=== PATIENT | male | born 1970 | race Caucasian/White ===

== ENCOUNTER 2025-04-28 11:03 | Outpatient (AMB) | payer MEDICARE, MEDICAID, SELFPAY ==
--- OUTSIDE RECORDS SUMMARY | 2024-04-03 14:15 | XMS_ITS | Encounter Summary ---
Author Organization [facility] Address [address] [place] [address] Care Team Providers Care Inspector Of Dredging Name Role Phone Oliver Schrader MD Primary Care Provider [phone] Encounter Details Date Type Department Care Team (Late st Contact Info) Description 04/03/2024 3:15 PM EDT Hospital Encounter TH HISTORIC ENCOUNTERS EASTERN CONVERSION ONLY Samanta Bill PA [address] [place] [address] Social History Tobacco Use Types Packs/Day Years Used Date Smoking Tobacco: Never Smokeless Tobacco: Never Alcohol Use Standard Drinks/Week Comments No 0 (1 standard drink = 0.6 oz pur e alcohol) Interpersonal Safety Answer Date Record ed Physical Abuse Unrecognized value 12/28/2024 Verbal Abuse Unrecognized value 12/28/2024 Sex and Gender Information Value Date Recorded Sex Assigned at Male 08/30/2024 3:16 AM EDT Legal Sex Male 11:36 AM EDT Gender Identity Male 08/30/2024 3:16 AM EDT Sexual Orientation Not on file documented as of this encounter Last Filed Vital Signs Vital Sign Reading Time Taken Comments Blood Pressure 125/63 04/03/2024 3:27 PM EDT Sit ting Pulse 105 04/03/2024 3:27 PM EDT Temperature - - Respiratory Rate - - Oxygen Saturation - - Inhaled Oxygen Concentration - - Weight 59 kg (130 lb) 07/20/2021 1:01 PM EST Height 170.2 cm (5' 7 ) 07/20/2021 1:01 PM EST Body Mass Index 20.36 07/20/2021 1:01 PM EST documented in this encounter Functional Status * Calculated C-SSRS Risk Score (Lifetime/Recent) Answer Date of Assessment Author No Risk Indicated 08/30/2024 2:00 AM EDT Kristen Walton RN * [place] Suicide Severity Rating Scale (Screener/Recent Self-Report) Question Answer Date of Assessment Author 1. Wish to be (Past 1 Month) No 025 2:00 AM EDT Kristen Walton, CARRILLO 2. Non-Specific Active Suici kalli Thoughts (Past 1 Month) No 08/30/2024 2:00 AM EDT Kristen Walton RN 6. Suicidal Behavior (Lifetime) No 2:00 AM EDT Kristen Walton RN documented as of this encounter Plan of Treatment Upcoming Encounters Date Type Department Care Team (Late st Contact Info) Description 09/25/2025 1:30 PM EDT Office Visit [facility] Hematology Oncology [address] [place] [address] Samanta Bill PA [address] [place] [address] documented as of this encounter Visit Diagnoses Not on filedocumented in this encounter Additional Health Concerns Infection Onset Date Last Indicated Resolved Time Respiratory Rule-Out 08/30/2024 08/30/2024 025 4:54 AM EDT COVID-19 Rule-Out 08/30/2024 08/30/2024 08/30/2024 4:54 AM EDT Influenza 08/30/2024 08/30/2024 09/23/2024 7:04 PM EDT documented as of this encounter Care Teams Inspector Of Dredging Relationship Specialty Start Date End Date Oliver Schrader MD [address] [facility] [address] [place] [phone] PCP - General 09/25/22 documented as of this encounter
--- OUTSIDE RECORDS SUMMARY | 2024-04-03 14:30 | XMS_ITS | Encounter Summary ---
Author Organization [facility] Address [address] [place] [address] Care Team Providers Care Auto Service Instructor Name Role Phone Oliver Schrader MD Primary Care Provider [phone] Encounter Details Date Type Department Care Team (Late st Contact Info) Description 04/03/2024 3:30 PM EDT Hospital Encounter TH HISTORIC ENCOUNTERS EASTERN CONVERSION ONLY Samanta Bill PA [address] [place] [address] Social History Tobacco Use Types Packs/Day Years [...] on file documented as of this encounter Functional Status * Calculated C-SSRS Risk Score (Lifetime/Recent) Answer Date of Assessment Author No Risk Indicated 08/30/2024 2:00 AM EDT Kristen Walton, CARRILLO * [place] Suicide Severity Rating Scale (Screener/Recent Self-Report) Question Answer Date of Assessment Author 1. Wish to be (Past 1 Month) No 025 2:00 AM EDT Kristen Walton, RN 2. Non-Specific Active Suici kalli Thoughts (Past 1 Month) No 08/30/2024 2:00 AM EDT Kristen Walton, RN 6. Suicidal Behavior (Lifetime) No 2:00 AM EDT Kristen Walton RN documented as of this encounter Plan of Treatment Upcoming Encounters Date Type Department Care Team (Late st Contact Info) Description 09/25/2025 1:30 PM EDT Office Visit [facility] Hematology Oncology [address] [place] [phone] Samanta Bill PA [address] [place] [address] documented as of this encounter Visit Diagnoses Not on filedocumented in this encounter Additional Health Concerns Infection Onset Date Last Indicated Resolved Time Respiratory Rule-Out 08/30/2024 08/30/2024 025 4:54 AM EDT COVID-19 Rule-Out 08/30/2024 08/30/2024 08/30/2024 4:54 AM EDT Influenza 08/30/2024 08/30/2024 09/23/2024 7:04 PM EDT documented as of this encounter Care Teams Auto Service Instructor Relationship Specialty Start Date End Date Oliver Schrader MD [address] [facility] [address] [place] [phone] PCP - General 09/25/22 documented as of this encounter
--- NOTE | 2025-04-28 11:25 | A.OFFVIS_ITS ---
Intake Visit Reasons: follow up Allergies No Known Allergies Allergy (Verified 12/16/24 09:53) HPI Comments Details: 54 years old man with severe chronic static encephalopathy and seizure disorder cared by his sister in law. Family could not bring him and we did tele consult. He was doing ok but occasionally had a brief seizure like spell. He was bedridden. His shaper set up operator is presenting for follow-up and medication management. The patient has severe iron deficiency anemia and is followed at a cancer center where the iron level is checked every six months. The patient received iron infusions, with the last course occurring in June or July of the previous year, and requires a follow-up blood check in May. The patient has experienced weight loss and is now skinny. The patient's diet primarily consists of pureed or soft foods and liquids. Mobility has declined, and the patient no longer moves well. The patient reports bone pain, particularly in the hips, which is exacerbated by position changes such as during diaper changes. Tylenol is administered for pain, with two doses in the morning and two at night. The patient requires medication for sleep and will remain awake all night without it. The patient is reportedly adherent to the medication regimen and requires refills for several medications, including clonazepam. [facility] Medical History (Updated 04/28/25 @ 11:28 by Britton Loo MD) DVT (deep venous thrombosis) Insomnia Restlessness and agitation Chronic static encephalopathy Epilepsy Assessment & Plan Assessment & Plan (1) Insomnia: Code(s): G47.00 - Insomnia, unspecified Category: Medical Qualifiers: Insomnia type: due to other mental disorder Qualified Code(s): F51.05 - Insomnia due to other mental disorder; F99 - Mental disorder, not otherwise specified (2) Chronic static encephalopathy: Code(s): G93.49 - Other encephalopathy Category: Medical (3) Epilepsy: Code(s): G40.909 - Epilepsy, unspecified, not intractable, without status epilepticus Category: Medical Qualifiers: Epilepsy type: unspecified Intractability: not intractable Status epilepticus: without status epilepticus Qualified Code(s): G40.909 - Epilepsy, unspecified, not intractable, without status epilepticus Plan Impression: a: Chronic static encephalopathy b: Epilepsy c: Insomnia Rec: a: Divalproex acid 250mg, one tid b; Phenytoid sodium ER 100mg, one tid c: Folic acid 1mg daily d: Clonazepam 1mg one at bedtime e: Quetiapine 25mg one at bedtime Orders: Orders Liver Panel Today G40.909 - Epilepsy, unspecified, not intractable, without status epilepticus Phenytoin Dilantin Today G40.90 - Epilepsy, unspecified, not intractable, without status epilepticus Valproate Today G40 - Epilepsy, unspecified, not intractable, without status epilepticus Medications: Refilled divalproex 250 mg PO TID 270 tabs 1RF 90 days folic acid 1 mg PO DAILY 90 tabs 1RF clonazepam (Klonopin) administer 30 minutes before bedtime 1 mg PO BEDTIME 90 tabs 1RF phenytoin sodium extended 100 mg PO TID 270 caps 1RF 90 days quetiapine 25 mg orally one at bedtime; 90 tabs 1RF Coding Level of Care Code Est Pt Level 3 (72962) Diagnoses Insomnia due to other mental disorder F51.05; F99 Insomnia type: due to other mental disorder Chronic static encephalopathy G93.49 Nonintractable epilepsy without status epilepticus, unspecified epilepsy type G40.90 Epilepsy type: unspecified Intractability: not intractable Status epilepticus: without status epilepticus
--- OUTSIDE RECORDS SUMMARY | 2025-04-28 14:35 | XMS_ITS | Encounter Summary ---
Author Organization [facility] Address [address] [place] [address] Care Team Providers Care Kiln Door Repairer Name Role Phone Oliver Schrader MD Primary Care Provider [phone] Encounter Details Date Type Department Care Team (Late Contact Info) Description 03/30/2025 Results Follow-Up [facility] Hematology Oncology [address] [place] [phone] Samanta Bill PA [address] [place] [address] Social History Tobacco Use Types Packs/Day Years [...] on file documented as of this encounter Plan of Treatment Upcoming Encounters Date Type Department Care Team (Late st Contact Info) Description 09/25/2025 1:30 PM EDT Office Visit [facility] Hematology Oncology [address] [place] [phone] Samanta Bill PA [address] [place] [address] documented as of this encounter Visit Diagnoses Not on filedocumented in this encounter Care Teams Kiln Door Repairer Relationship Specialty Start Date End Date Oliver Schrader MD [address] [place] [phone] PCP - General 09/25/22 documented as of this encounter
--- OUTSIDE RECORDS SUMMARY | 2025-04-28 14:35 | XMS_ITS | Clinical Summary ---
Author Organization [facility] Address [address] [place] [address] Care Team Providers Care Field Assistant Name Role Phone Oliver Schrader MD Primary Care Provider [phone] Allergies No known active allergies Medications Medication Sig Dispensed Refills Start Date End Date Status divalproex (DEPAKOTE) [address] tablet Take 1 tablet (250 mg total) by mouth 3 (three) times a day. 0 Active phenytoin (DILANTIN) 100 MG ER capsule Take by mouth 3 (three) times a day. 0 Active clonazePAM (KlonoPIN) 1 MG tablet Take 1 tablet (1 mg total) by mouth 2 (two) times a day as needed for anxiety. 0 Active QUEtiapine (SEROquel) 25 MG tablet Take 1 tablet (25 mg total) by mouth every night at bedtime. 0 Active enoxaparin (LOVENOX) 60 MG/0.6ML SOLN Inject 0.6 mL (60 mg total) under the skin every 12 (twelve) hours. 0 Active Cetirizine HCl 10 MG CAPS Take 1 capsule (10 mg total) by mouth daily as needed. 0 04/06/2020 Active FeroSul 325 (65 Fe) MG tablet Take 1 tablet (325 mg total) by mouth daily. 0 06/16/2021 Active omeprazole (PriLOSEC) 40 MG capsule Take 1 capsule (40 mg total) by mouth daily. 0 01/16/2020 Active bisacodyl (DULCOLAX) 5 MG EC tablet Take 1 tablet (5 mg total) by mouth daily as needed for constipation. 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 01/16/2020 Eczema 08/27/2007 Cerebral palsy 02/06/2006 Overview: IMO update Intellectual disability 02/06/2006 Seizures 02/06/2006 Family History Medical History Relation Name Comments Diabetes Father Diabetes Mother Relation Name Status Comments Father Alive Mother Alive Social History Tobacco Use Types Packs/Day Years Used Date Smoking Tobacco: Never Smokeless Tobacco: Never Alcohol Use Standard Drinks/Week Comments Never 0 (1 standard drink = 0.6 oz pur e alcohol) Sex and Gender Information Value Date Recorded Sex Assigned at Not on file Gender Identity Not on file Sexual Orientation Not on file Job Start Date Occupation Industry Not on file Not on file Not on file Last Filed Vital Signs Vital Sign Reading Time Taken Comments Blood Pressure 125/63 04/03/2024 3:27 PM EDT Pulse 105 04/03/2024 3:27 PM EDT Temperature 36.2 C (97.2 F) 04/03/2024 3:27 PM EDT Respiratory Rate - - Oxygen Saturation 100% 04/03/2024 3:2 7 PM EDT Inhaled Oxygen Concentration - - Weight 59 kg (130 lb) 07/20/2021 1:01 PM EST Pt disabled- unable to obtain WT today Height 170.2 cm (5' 7 ) 07/20/2021 1:01 PM EST Body Mass Index 20.36 07/20/2021 1:01 PM EST Plan of Treatment Health Maintenance Due Date Last Done Comments Hepatitis B Vaccines (1 of 3 - 3-dose series) 1972 Hepatitis C Screening 1972 COVID-19 Vaccine (#1) 1972 Depression Screening 1984 Preventative Health Evaluation 1990 DTap / Tdap / Td (1 - Tdap) 1991 Colon Cancer Screening (Colonoscopy) 2017 Shingrix-Zoster Vaccine (1 of 2) 2022 Influenza Vaccine (#1) 2025 04/06/2020 Pneumococcal Vaccine Aged Out No long er eligible based on patient's age to complete this topic RSV Ped < 20 months Aged Out No longe r eligible based on patient's age to complete this topic Care Teams Field Assistant Relationship Specialty Start Date End Date Oliver Schrader MD [address] [place] [address] PCP - General Internal Medicine 02/08/24
--- OUTSIDE RECORDS SUMMARY | 2025-04-28 14:35 | XMS_ITS ---
Author Name [facility] Organization Unknown Care Team Organization Name Specialty Phone Email Start Date End Da te [facility] ACO 01/21/2025 [facility] Naty Alvarez Primary Care 05/16/2023 01/21/2024 [facility] Joe, PROVIDER Primary Care 10/09/202201/02 [facility] Pallavi Dorado Primary Care 04/11/2022
--- OUTSIDE RECORDS SUMMARY | 2025-04-28 14:35 | XMS_ITS | Clinical Summary ---
Author Organization Patient Business [facility] Address [address] [place] [address] Care Team Providers Care Hydraulic Press Servicer Name Role Phone Oliver Schrader MD Primary Care Provider [phone] Allergies No known active allergies Medications divalproex (DEPAKOTE ER) 250 mg 24 hr tablet Take 1 tablet (250 mg total) by mouth 3 (three) times a day. 2 Active QUEtiapine (SEROquel) 25 mg tablet Take 1 tablet (25 mg total) by mouth at bedtime. 0 Active clonazePAM (KlonoPIN) 1 mg tablet Take 1 tablet (1 mg total) by mouth at bedtime. Active phenytoin (DILANTIN) 100 mg ER capsule Take 1 capsule (100 mg total) by mouth 3 (three) times a day. Active ascorbic acid (VITAMIN C) 250 MG chewable tablet Chew 1 tablet (250 mg total). 4 Active acetaminophen (TYLENOL) 500 mg tablet Take 1 tablet (500 mg total) by mouth every 8 (eight) hours if needed for mild pain. Active nutritional supplements 0.09 gram- 0.5 kcal/mL liquidIndication s:Iron deficiency anemia, unspecified iron deficiency anemia type,Cerebral palsy, unspecified type (CMS/HCC V24, CMS/HCC V28) Take 1 each by mouth 2 (two) times a day. 1500 mL 11 4 Active silver-foam bandage 1.2 %- 4 X 4 bandageIndicatio ns:Pressure injury of heel, stage 2, unspecified laterality (CMS/HCC V24, CMS/HCC V28) Apply 1 each topically 1 (one) time each day. 30 each 11 5 Active calcium carbonate (OS-MICHAEL) 1,250 mg (500 mg elemental calcium) tabletIndication s:Pressure injury of heel, stage 2, unspecified laterality ([facility] V24, [facility] V28) Take 1 tablet (1,250 mg total) by mouth 3 (three) times a day. 10 tablet 3 5 Active omeprazole (PriLOSEC) [address] capsule TAKE 1 CAPSULE BY MOUTH 1 TIME EACH DAY. 90 capsule 1 5 Active ferrous sulfate 324 mg (65 mg elemental iron) EC tablet TAKE 1 TABLET BY MOUTH ONCE DAILY WITH BREAKFAST. DO NOT CRUSH, CHEW, OR SPLIT. 90 tablet 1 5 Active Active Problems Problem Noted Date Diagnosed Date Functional quadriplegia ([facility] V24, [facility] V2 8) 12/28/2024 Gastroesophageal reflux dise ase with esophagitis without hemorrhage 12/28/2024 Acute cystitis with hematuria 12/28/2024 Gross hematuria 12/27/2024 Iron deficiency anemia 04/08/2024 COVID-19 virus infection 07/04/2021 Bilateral pulmonary embolism ([facility] V24, [facility] V28) 07/04/2021 Overview (08/08/2023): Had f/u evaluation with [facility] hem/onc Advised 3-6 months of anticoagulation with coumadin Has 2 prior episodes but felt to be provoked events Nonverbal 10/22/2020 Hiatal hernia 10/22/2020 Overview (08/08/2023): Moderate To large Moderate To large Castillo's esophagus without dysplasia 01/16/2020 Upper GI bleeding 11/04/2018 Overview (08/08/2023): Esophageal ulcer Eczema 08/27/2007 Intellectual disability 02/06/2006 Cerebral palsy ([facility] V24, [facility] V28) 2005 Overview (08/08/2023): [facility] update [facility] update Seizures ([facility] V24, [facility] V28) 02/06/2006 Encounters Date Type Department Care Team Description 04/07/2025 1:11 PM EST - 04/07/2025 11:59 PM EST Hospital Encounter [facility] [address] [place] [phone] Arianna Wilson DO Iron deficiency anemia, unspecified iron deficiency anemia type (Primary Dx) Discharge Disposition: Home or Self Care 03/30/2025 Results Follow-Up [facility] [address] [place] [phone] Samanta Bill PA 03/27/2025 1:30 PM EDT Office Visit [facility] [address] [place] [phone] Samanta Bill PA Iron deficiency anemia due to chronic blood loss (Primary Dx); Seizure disorder ([facility] V24, [facility] V28); Castillo's esophagus without dysplasia; Cerebral palsy, unspecified type ([facility] V24, [facility] V28); Iron deficiency anemia, unspecified iron deficiency anemia type 03/12/2025 Telephone Internal Medicine [facility] [address] [phone] Melissa Langley [place] 03/03/2025 Telephone Internal Medicine [facility] [address] [phone] Oliver Schrader MD from Last 3 Months Immunizations Immunization Administration Dates Next Due Influenza Quadravalent, MDCK , 0.5ml, preservative free (Flucelvax) 6mo and older 04/06/2020 Surgical History Surgery Date Site/Laterality Comments ESOPHAGOGASTRODUODENOSCOPY 03/2019 PROCEDURE: [place] ESOPHAGOGASTRODUODENOSCOPY TRANSORAL DIAGNOSTIC ESOPHAGOGASTRODUODENOSCOPY 04/15/2020 PROCEDURE: [place] ESOPHAGOGASTRODUODENOSCOPY TRANSORAL DIAGNOSTIC; COMMENT: large hiatal hernia, castillo's, GERD Medical History Medical History Date Comments Unspecified intellectual disabilities 02/06/2006 DX:Unspecified intellectual disabilities Infantile cerebral palsy, unspecified 02/06/2006 DX:Infantile cerebral palsy, unspecified Other convulsions 02/06/2006 DX:Other convu lsions Hiatal hernia 10/22/2020 DX:Hiatal hernia ; COMMENT: Moderate To large Nonverbal 10/22/2020 DX:Nonverbal Iron deficiency anemia 04/08/2024 Family History Medical History Relation Name Comments No Known Problems Father No Known Problems Mother Relation Name Status Comments Father Alive [...] AM EDT Sexual Orientation Not on file Obstetrics History Last Filed Vital Signs Vital Sign Reading Time Taken Comments Blood Pressure 113/81 04/07/2025 4:35 PM EST Pulse 90 04/07/2025 4:35 PM EST Temperature 36.9 C (98.4 F) 04/07/2025 4:35 PM EST Respiratory Rate 18 04/07/2025 4:35 PM EST Oxygen Saturation 99% 04/07/2025 4:35 PM EST Inhaled Oxygen Concentration - - Weight 72.6 kg (160 lb) 01/05/2025 2:11 PM EDT Height 175.3 cm (5' 9 ) 12/27/2024 6:44 PM EDT Body Mass Index 23.63 12/27/2024 6:44 PM EDT Plan of Treatment Upcoming Encounters Date Type Department Care Team (Late st Contact Info) Description 09/25/2025 1:30 PM EDT Office Visit [facility] [address] [place] [phone] Samanta Bill PA [address] [place] [address] Health Maintenance Due Date Last Done Comments DTaP,Tdap,and Td Vaccines (1 - Tdap) 1991 Hepatitis B Vaccines (1 of 3 - 19+ 3-dose series) 1991 HIV Screening 02/23/2022 Medicare Annual Wellness Visit 02/23/2022 Social Influencers of Health Screening 02/23/2022 Pneumococcal Vaccine: 50+ Years (2 of 2 - PCV) 2022 10/29/2007 RSV Immunization Adult Patients (1 - Risk 50-74 years 1-dose series) 2022 Zoster Vaccines (1 of 2) 2022 Depression Screening 06/04/2024 COVID-19 Vaccine (1 - 2024-2 6 season) 2025 Influenza Vaccine (#1) 2025 04/06/2020 Cholesterol Screening (Lipid Panel) 07/19/2028 07/19/2023 Colorectal Cancer Screening: Colonoscopy 12/11/2033 12/12/2023 Hepatitis C Screening Completed 07/19/2023 , 07/19/2023 HIB Vaccines Aged Out No longer eligi ble based on patient's age to complete this topic HPV Vaccines Aged Out No longer eligi ble based on patient's age to complete this topic Hepatitis A Vaccines Aged Out No long er eligible based on patient's age to complete this topic IPV Vaccines Aged Out No longer eligi ble based on patient's age to complete this topic MMR Vaccines Aged Out No longer eligi ble based on patient's age to complete this topic Meningococcal ACWY Vaccine Aged Out N o longer eligible based on patient's age to complete this topic Meningococcal B Vaccine Aged Out No l onger eligible based on patient's age to complete this topic RSV Immunization Patients Under 20 months Aged Out No longer eligible b ased on patient's age to complete this topic Varicella Vaccines Aged Out No longer eligible based on patient's age to complete this topic Procedures Procedure Name Priority Date/Time Associated Diagnosis Comments CBC WITH AUTO DIFFERENTIAL Routine 03/27/2025 2:09 PM EDT Iron deficiency anemia due to chronic blood loss IRON AND TIBC Routine 03/27/2025 2:09 PM EDT Iron deficiency anemia due to chronic blood loss FERRITIN Routine 03/27/2025 2:09 PM EDT Iron deficiency anemia due to chronic blood loss CBC AND DIFFERENTIAL Routine 03/27/2025 2:09 PM EDT Iron deficiency anemia due to chronic blood loss HM COLONOSCOPY Routine 12/12/2023 HEPATITIS C SCREENING Routine 07/19/2023 LIPID PANEL Routine 07/19/2023 from Last 3 Months or Most Recently Relevant to Health Maintenance Results * (ABNORMAL) CBC auto differential (03/27/2025 2:09 PM EDT) WBC 8.5 4.8 - 10.8 K/mcL LAB [facility] RBC 5.10 4.50 - 5.50 M/mcL LAB HEMETOLOGY METHOD 03/27/2025 5:01 PM [facility] Hemoglobin 13.4(L) 13.5 - 17.5 g/dL LAB HEMETOLOGY METHOD 03/27/2025 5:01 PM [facility] Hematocrit 42.5 42.0 - 54.0 % LAB HEMETOLOGY METHOD 03/27/2025 5:01 PM [facility] MCV 82.7 79.0 - 98.0 FL LAB HEMETOLOGY METHOD 03/27/2025 5:01 PM [facility] MCH 26.1(L) 27.0 - 32.0 pcg LAB HEMETOLOGY METHOD 03/27/2025 5:01 PM [facility] MCHC 31.5(L) 32.0 - 37.0 g/dL LAB HEMETOLOGY METHOD 03/[facility] RDW 20.8(H) 11.0 - 15.0 % LAB HEMETOLOGY METHOD 03/27[facility] Platelets 320 130 - 400 K/mcL LAB HEMETOLOGY METHOD 03/27/2025 5:01 PM [facility] MPV 9.9 7.0 - 11.0 FL LAB HEMETOLOGY METHOD 03/27[facility] NRBC 0.0 <1.0 % LAB HEMETOLOGY METHOD 03/27/2025 5:01 PM [facility] NRBC Absolute 0.00 <0.10 K/mcL LAB HEMETOLOGY METHOD 03/27/2025 5:01 PM [facility] Neutrophils Relative 73.3 % LAB HEMETOLOGY METHOD 03/27/2025 5:01 PM [facility] Lymphocytes Relative 14.5 % LAB HEMETOLOGY METHOD 03/27/2025 5:01 PM [facility] Monocytes Relative 8.1 % LAB HEMETOLOGY METHOD 03/27/2025 5:01 PM [facility] Eosinophils Relative 3.0 % LAB HEMETOLOGY METHOD 03/27/2025 5:01 PM [facility] Basophils Relative 0.9 % LAB HEMETOLOGY METHOD 03/27/2025 5:01 PM [facility] Immature Granulocytes Relative 0.2 % LAB HEMETOLOGY METHOD 03/27/2025 5:01 PM [facility] Neutrophils Absolute 6.20 1.50 - 7.00 K/mcL LAB HEMETOLOGY METHOD 03/27/2025 5:01 PM [facility] Lymphocytes Absolute 1.23 1.00 - 5.00 K/mcL LAB HEMETOLOGY METHOD 03/27/2025 5:01 PM EDT [facility] Monocytes Absolute 0.69 0.20 - 1.00 K/[facility] LAB HEMETOLOGY METHOD 03/27/2025 5:01 PM EDT [facility] Eosinophils Absolute 0.25 0.00 - 0.50 K/mcL LAB HEMETOLOGY METHOD 03/27/2025 5:01 PM EDT [facility] Basophils Absolute 0.08 0.00 - 0.20 K/[facility] LAB HEMETOLOGY METHOD 03/27/2025 5:01 PM EDT [facility] Immature Granulocytes Absolute 0.02 0.00 - 0.03 K/[facility] LAB HEMETOLOGY METHOD 03/27/2025 5:01 PM EDT [facility] Blood Venous blood specimen / Unknown Venipuncture / Unknown 03/27/2025 2:09 PM EDT 03/27/2025 4:34 PM EDT us Samanta MONACO LAB BLOOD ORDERABLES Final Re sult [facility] [address] [place] [address], * (ABNORMAL) Iron and TIBC (03/27/2025 2:09 PM EDT) Iron 58 50 - 160 mcg/dL LAB CHEMISTRY METHOD 03/27/2025 5:19 PM EDT [facility] TIBC 300 250 - 450 mcg/dL LAB CHEMISTRY METHOD 03/27/2025 5:19 PM EDT [facility] Iron Saturation 19(L) 20 - 50 % LAB CHEMISTRY METHOD 03/27/2025 5:19 PM EDT [facility] Blood Venous blood specimen / Unknown Venipuncture / Unknown 03/27/2025 2:09 PM EDT 03/27/2025 4:33 PM EDT Samanta MONACO LAB BLOOD ORDERABLES Final Re sult [facility] [address] [place] [address], [place] [phone] * (ABNORMAL) Ferritin (03/27/2025 2:09 PM EDT) [facility] Ferritin 19(L) 26 - 388 ng/mL LAB CHEMISTRY METHOD 03/27/2025 5:20 PM EDT [facility] Blood Venous blood specimen / Unknown Venipuncture / Unknown 03/27/2025 2:09 PM EDT 03/27/2025 4:33 PM EDT Samanta MONACO LAB BLOOD ORDERABLES Final Re sult Performing Organization Address [facility] Co de Phone Number [facility] [address] [place] [address], [place] [phone] * Colonoscopy (12/12/2023) [facility] Colonoscopy no interpreta tion,abstr acted Anatomical Region Laterality Modality Other Historical Provider HEALTH MAINTENANCE Final Result * Hepatitis C Screening (07/19/2023) [facility] Hepatitis C Screening abstracted Historical Provider HEALTH MAINTENANCE Final Result * Lipid panel (07/19/2023) [facility] LDL/HDL Ratio 3 0 - 4 Triglycerides 94 0 - 150 mg/dL Cholesterol 162 0 - 200 mg/dL HDL 50 >=40 mg/dL LDL Cholesterol 94 0 - 100 mg/dL Blood Venous blood specimen / Unknown Historical Provider LAB BLOOD ORDERABLES Lisa l Result from Last 3 Months or Most Recently Relevant to Health Maintenance Insurance MEDICARE [place]ICA[place] - [place] Advance Directives Documents on File Type Date Recorded Patient Software Firmware Engineer Expl anation Health Care Decision (hx) 10/17/2018 AD HECK DIRECTIVE Health Care Decision (hx) 10/17/2018 AD HECK DIRECTIVE Health Care Decision (hx) 10/17/2018 AD HECK DIRECTIVE Health Care Decision (hx) 10/17/2018 AD HECK DIRECTIVE Health Care Decision (hx) 10/17/2018 AD HECK DIRECTIVE Health Care Decision (hx) 10/17/2018 AD HECK DIRECTIVE Health Care Decision (hx) 10/17/2018 AD HECK DIRECTIVE Health Care Decision (hx) 10/17/2018 AD HECK DIRECTIVE Health Care Decision (hx) 10/17/2018 AD HECK DIRECTIVE Health Care Decision (hx) 10/17/2018 AD HECK DIRECTIVE Health Care Decision (hx) 10/17/2018 AD HECK DIRECTIVE Health Care Decision (hx) 10/17/2018 AD HECK DIRECTIVE Health Care Decision (hx) 10/17/2018 AD HECK DIRECTIVE Health Care Decision (hx) 10/17/2018 AD HECK DIRECTIVE * No CPR/Do Not Intubate (Latest Code Status on File) Date Activated Date Inactivated Comments 12/28/2024 5:05 AM 12/28/2024 2:[address] atus was ascertained in the following way: Code status discussion: discussion with healthcare senior patient account representative To update the patient's code status, place a code status order. Do not modify or discontinue any currently active code status orders. * Full Code - Default Date Activated Date Inactivated Comments 12/28/2024 12:05 AM 12/28/2024 5:05 AM This is ord er is used when code status has not been discussed with the patient, or code status is otherwise unknown/unconfirmed To update the patient's code status, place a code status order. Do not modify or discontinue any currently active code status orders. * No CPR/Do Not Intubate Date Activated Date Inactivated Comments 12/28/2024 12:04 AM 12/28/2024 12:05 AM This code status was ascertained in the following way: Code status discussion: discussion with healthcare senior patient account representative To update the patient's code status, place a code status order. Do not modify or discontinue any currently active code status orders. Care Teams Hydraulic Press Servicer Relationship Specialty Start Date End Date Oliver Schrader MD [address] [place] [phone] PCP - General 09/25/22
--- OUTSIDE RECORDS SUMMARY | 2025-04-28 14:35 | XMS_ITS | Encounter Summary ---
Author Organization [facility] Address [address] [place] [address] Care Team Providers Care Supervisor Concrete Stone Fabricating Name Role Phone Oliver Schrader MD Primary Care Provider [phone] Encounter Details Date Type Department Care Team (Late st Contact Info) Description 05/22/2024 Lab Requisition [facility] [address] [facility] [place] [phone] Samanta Bill PA [address] [place] [address] Anemia, unspecified Social History Tobacco Use Types Packs/Day Years [...] Description 09/25/2025 1:30 PM EDT Office Visit [facility] Hematology Oncology [address] [place] [phone] Samanta Bill PA [address] [place] [address] documented as of this encounter Procedures Procedure Name Priority Date/Time Associated Diagnosis Comments CBC WITH AUTO DIFFERENTIAL Routine 05/22/2024 1:09 PM EST Anemia, unspecified IRON AND TIBC Routine 05/22/2024 1:09 PM EST Anemia, unspecified CBC AND DIFFERENTIAL Routine 05/22/2024 1:09 PM EST Anemia, unspecified FERRITIN Routine 05/22/2024 1:09 PM EST Anemia, unspecified documented in this encounter Results * (ABNORMAL) CBC auto differential (05/22/2024 1:09 PM EST) Pathologist [facility] WBC 7.7 4.8 - 10.8 K/mcL LAB HEMETOLOGY METHOD 05/22/2024 3:03 PM [facility] RBC 5.40 4.50 - 5.50 M/mcL LAB HEMETOLOGY METHOD 05/22/2024 3:03 PM [facility] Hemoglobin 14.6 13.5 - 17.5 g/dL LAB HEMETOLOGY METHOD 05/22/2024 3:03 PM [facility] Hematocrit 46.3 42.0 - 54.0 % LAB HEMETOLOGY METHOD 05/22/2024 3:03 PM [facility] MCV 86.2 79.0 - 98.0 FL LAB HEMETOLOGY METHOD 05/22/2024 3:03 PM [facility] MCH 27.2 27.0 - 32.0 pcg LAB HEMETOLOGY METHOD 05/22/2024 3:03 PM [facility] MCHC 31.5(L) 32.0 - 37.0 g/dL LAB HEMETOLOGY METHOD 05/22/2024 3:03 PM [facility] RDW 19.9(H) 11.0 - 15.0 % LAB HEMETOLOGY METHOD 05/22/2024 3:03 PM [facility] Platelets 286 130 - 400 K/mcL LAB HEMETOLOGY METHOD 05/22/2024 3:03 PM [facility] MPV 9.9 7.0 - 11.0 FL LAB HEMETOLOGY METHOD 05/22/2024 3:03 PM [facility] NRBC 0.0 <1.0 % LAB HEMETOLOGY METHOD 05/22/2024 3:03 PM [facility] NRBC Absolute 0.00 <0.10 K/mcL LAB HEMETOLOGY METHOD 05/22/2024 3:03 PM [facility] Neutrophils Relative 79.1 % LAB HEMETOLOGY METHOD 05/22/2024 3:03 PM [facility] Lymphocytes Relative 12.9 % LAB HEMETOLOGY METHOD 05/22/2024 3:03 PM [facility] Monocytes Relative 6.2 % LAB HEMETOLOGY METHOD 05/22/2024 3:03 PM [facility] Eosinophils Relative 0.5 % LAB HEMETOLOGY METHOD 05/22/2024 3:03 PM [facility] Basophils Relative 1.0 % LAB HEMETOLOGY METHOD 05/22/2024 3:03 PM [facility] Immature Granulocytes Relative 0.3 % LAB HEMETOLOGY METHOD 05/22/2024 3:03 PM [facility] Neutrophils Absolute 6.12 1.50 - 7.00 K/mcL LAB HEMETOLOGY METHOD 05/22/2024 3:03 PM [facility] Lymphocytes Absolute 1.00 1.00 - 5.00 K/mcL LAB HEMETOLOGY METHOD 05/22/2024 3:03 PM [facility] Monocytes Absolute 0.48 0.20 - 1.00 K/mcL LAB HEMETOLOGY METHOD 05/22/2024 3:03 PM [facility] Eosinophils Absolute 0.04 0.00 - 0.50 K/mcL LAB HEMETOLOGY METHOD 05/22/2024 3:03 PM [facility] Basophils Absolute 0.08 0.00 - 0.20 K/mcL LAB HEMETOLOGY METHOD 05/22/2024 3:[address] [facility] Immature Granulocytes Absolute 0.02 0.00 - 0.03 K/[facility] LAB HEMETOLOGY METHOD 05/22/2024 3:[address] [facility] Blood Venous blood specimen / Unknown 05/22/2024 1:09 PM EST 05/22/2024 2:53 PM EST us Samanta MONACO LAB BLOOD ORDERABLES Final Re sult [facility] [address] [place] [address], [place] [phone] * (ABNORMAL) Iron and TIBC (05/22/2024 1:09 PM EST) Iron 70 50 - 160 mcg/dL LAB CHEMISTRY METHOD 05/22/2024 3:[address] [facility] TIBC 209(L) 250 - 450 mcg/dL LAB CHEMISTRY METHOD 05/22/2024 3:[address] [facility] Iron Saturation 33 20 - 50 % LAB CHEMISTRY METHOD 05/22/2024 3:[address] [facility] Blood Venous blood specimen / Unknown 05/22/2024 1:09 PM EST 05/22/2024 2:53 PM EST us Samanta MONACO LAB BLOOD ORDERABLES Final Re sult [facility] [address] [place] [address], [place] [phone] * Ferritin (05/22/2024 1:09 PM EST) Ferritin 131 26 - 388 ng/mL LAB CHEMISTRY METHOD 05/22/2024 3:[address] [facility] Blood Venous blood specimen / Unknown 05/22/2024 1:09 PM EST 05/22/2024 2:53 PM EST us Samanta MONACO LAB BLOOD ORDERABLES Final Re sult [facility] [address] [place] [address], documented in this encounter Visit Diagnoses Diagnosis Anemia, unspecified documented in this encounter Additional Health Concerns Infection Onset Date Last Indicated Resolved Time Respiratory Rule-Out 08/30/2024 08/30/2024 025 4:54 AM EDT COVID-19 Rule-Out 08/30/2024 08/30/2024 08/30/2024 4:54 AM EDT Influenza 08/30/2024 08/30/2024 09/23/2024 7:04 PM EDT documented as of this encounter Care Teams Supervisor [employer] Relationship Specialty Start Date End Date Oliver Schrader MD [address] [phone] PCP - General 09/25/22 documented as of this encounter
== END 2025-04-28 11:37 | disposition home or self-care (01) ==
LOC: HO.HSM 11:03
PROVIDERS: PCP Internal Medicine; Visit Provider Psychiatry & Neurology Neurology
DX: F51.05 Insomnia due to other mental disorder (principal); F99 Mental disorder, not otherwise specified; G93.49 Other encephalopathy; G40.909 Epilepsy, unspecified, not intractable, without status epilepticus
CPT/HCPCS: 99213

== ENCOUNTER → 2025-04-28 11:03 | Outpatient (BNVA) | payer MEDICARE, MEDICAID, SELFPAY | PROVIDERS: PCP Internal Medicine; Visit Provider Psychiatry & Neurology Neurology | DX: G40.909 Epilepsy, unspecified, not intractable, without status epilepticus (principal); G93.49 Other encephalopathy; D50.9 Iron deficiency anemia, unspecified; F51.05 Insomnia due to other mental disorder; F99 Mental disorder, not otherwise specified | CPT/HCPCS: 99212 ==